=== PATIENT | female | born 1990 | race Caucasian/White ===

== ENCOUNTER 2016-04-06 15:59 | Inpatient (IN) | payer OTHER ==
[~2016-04-06] VITALS: Ht 160 cm; Wt 80.7 kg
[~2016-04-06 15:59] MED LIST: PREN1TAB69 PO
[2016-04-06] MEDS ORDERED: Lactated Ringer's 1,000 ML IV PRN (18:37)
[2016-04-06] MEDS ORDERED: Carboprost 250 mCg/mL Inj IM PRN ×2 (18:40→20:05)
[2016-04-06] MEDS ORDERED: Sodium Chloride LOK Flush 10 mL Syringe IVFLUSH PRN (18:40)
[2016-04-06] MEDS ORDERED: Oxytocin 10 Unit/mL Inj IM PRN ×2 (18:40→20:05)
[2016-04-06] MEDS ORDERED: Oxytocin 30 Units/500 mL LR 30 UNITS in IV Premix 1 EACH IV PRN ×2 (18:40→20:05)
[2016-04-06] MEDS ORDERED: Methylergonovine 0.2 mg/mL Inj IM PRN ×2 (18:40→20:05)
[2016-04-06] MEDS ORDERED: Hemorrhage Kit, Post Partum XX ONE ×2 (18:40→20:05)
[2016-04-06 18:47] LABS: Mean Corpuscular Hemoglobin 31.7 pg (27.0-35.0); Mean Corpuscular Volume 90.7 fL (81-100)
[2016-04-06] MEDS ORDERED: Lactated Ringer's 1,000 ML IV SCH ×2 (19:01→20:05)
[2016-04-06] MEDS ORDERED: Lactated Ringer's 500 ML IV ONE (19:01)
[2016-04-06] MEDS ORDERED: Ondansetron 2 mg/mL 2 mL Inj IVPUSH PRN (19:05)
[2016-04-06] MEDS ORDERED: fentaNYL-PF 50 mCg/mL 2 mL Inj IVPUSH PRN (19:05)
[2016-04-06] MEDS ORDERED: Atropine 1 mg/10 mL (Code) Syringe IVPUSH PRN (19:05)
[2016-04-06] MEDS ORDERED: fentaNYL 2 mCg/mL-Bupiv 0.125% 100 ML EPIDURAL SCH (19:05)
[2016-04-06] MEDS ORDERED: EPHEDrine Sulfate 50 mg/mL Inj IVPUSH PRN (19:05)
--- NOTE | 2016-04-06 19:43 | PCM.HPANE ---
Patient Data Date of Service: Apr 06, 2016 Surgeon Admitting Provider:Jason Hernandez MD Attending Provider:Jason Hernandez MD Primary Care Physician:Arabella Sarmiento MD Other Provider:Day Li Anesthesia Reason for Visit Term Labor Check TERM LABOR CHECK Ht/WT & BMI Body Mass Index Allergies Coded Allergies: No Known Allergies (Verified Allergy, Unknown, 05/07/15) Past Anesthesia History Anesthesia History: Denies:: Anesthesia Reactions, Fam Anesthesia Reaction Diabetes History Hx Diabetes?: No MRSA MRSA: No Medications Hypertension Medication: No Home Meds Incl Beta Kailyn: No Reported Medications Vit/Fe Fumarate/Fa-Expunged Drug, Do (-Expunged Drug, Do Not Renew!)1 Each Tablet1 Each PO QAM 07/25/10 History History of ENT Problems?: No Hx of Heart Problems?: No Cardiovascular History: Denies:: Congestive Heart Failure Hypertension Hx of Respiratory Problem?: No Respiratory History: Denies:: Tuberculosis Hx Neurologic Problems?: No Hx of GI Problems?: No Hx of Problems?: No HX of Peritoneal Dialysis: No Female Hx: Positive for:: Currently Hx Musculoskeletal Problems?: No Hx of Psycho/Social Problems?: No Hx Surgeries?: No Hx Any Other Health Problems?: No Hx Diabetes: No Hx Alcohol Use: NoHx Substance Use: No Smoking Status: Never Smoker Have You Smoked inLast 12 mo: No Stop/Bang MARC Risk Assessment: Low Risk, <3 Yes Risk Assessment Category Category 1A: Patient has history of documented sleep apnea, and HAS NOT received any narcotic, sedative or anesthesia administration during this stay. Category 1B: Patient has history of documented sleep apnea, and HAS received any narcotic , sedative or anesthesia administration during this stay Category 2: Patient has SUSPECTED Obstructive Sleep Apnea, and HAS received any narcotic , sedative or anesthesia administration during this stay. Category 3: Patient has SUSPECTED Obstructive Sleep Apnea and HAS NOT received narcotic, sedative or anesthesia administration during this stay. Category 4: Outpatient in Procedural Areas with known sleep apnea or who screen positive for High Risk via the STOP/BANG questionnaire. Exam Exam General Appearance: Alert, Oriented X3, Cooperative, Moderate Distress HEENT/AIRWAY: MP 2 Lungs: Clear to Auscultation, Normal Air Movement Heart: Exam Unremarkable, Regular Rate/Rhythm, No Murmurs/Rubs/Gallops Meds/Labs/Diagnostics Admission Meds Current Medications Lactated Ringer's (Lr) 1,000 ml @ 125 mls/hr Q8H IV Last administered on 04/06at 19:07; Start 04/06/16 at 19:01; Stop 04/07/16 at 19:02 Labs Test 04/06/16 18:45 04/06/16 18:55 White Blood Count 9.8th/mm3 (3.8-10.1) Red Blood Count 4.20mil/mm3 (3.90-5.20) Hemoglobin 13.3g/dL (12.0-15.6) Hematocrit 38.1% (35.0-46.0) Mean Corpuscular Volume 90.7fL (81-100) Mean Corpuscular Hemoglobin 31.7pg (27.0-35.0) Mean Corpuscular Hemoglobin Concent 34.9% (32.0-37.0) Red Cell Distribution Width 12.6% (12.3-15.4) Platelet Count 212bil/L (150-400) Hold Purple Top Tube Received (Received) Plan Impression Patient chart reviewed, patient interviewed and anesthestic plan with risks, benefits, and alternatives discussed, and informed consent obtained. NPO Status: presume full stomach ASA Physical Status: ASA2 Mod Systemic Disease Anesthetic Plan: Epidural Bene/Risks/Altern/Consents: Yes HP Complete Prior to Induction: Yes Romain Escobar MD Apr 06, 2016 19:43
[2016-04-06] MEDS ORDERED: Witch Hazel-Glycerin Pads TOPICAL PRN (20:05)
[2016-04-06] MEDS ORDERED: Benzocaine (Dermoplast) 20% 60 Gm Spray TOPICAL PRN (20:05)
[2016-04-06] MEDS ORDERED: LANOlin HPA 7 Gm Ointment TOPICAL PRN (20:05)
--- NOTE | 2016-04-06 20:57 | OP ---
[address] [address] OPERATIVE REPORT PATIENT: BELINDA WATSON : 1990 MR#: [id number] ADMIT: 04/06/2016 JOB ID: [id number] DELIVERY NOTE: DATE OF SURGERY: 04/06/2016 SURGEON: Jason Hernandez MD PREOPERATIVE DIAGNOSIS(ES): Term POSTOPERATIVE DIAGNOSIS(ES): Vaginal Delivery PROCEDURE: Normal spontaneous vaginal delivery over an intact perineum. ANESTHESIA: Epidural anesthesia. BABY: Vigorous baby girl, Apgars 8 and 9 at 1 and 5 minutes, respectively. Weight is not currently available. UTERUS: Spontaneous delivery of the placenta. No manual exploration of the uterus. LACERATIONS: None. DESCRIPTION: This patient is a 25-year-old, G3 now P3, who presented at 40 weeks gestation with a labor check about 4 hours ago and was initially found to be 2 cm dilated with irregular contractions. She was monitored over time and had rapid cervical change. Luckily she was able to get an epidural that she was requesting prior to delivering. She proceeded rapidly. There was some decelerations and she delivered the baby over approximately four contractions. There was a tight nuchal cord that was reduced. The baby was delivered without complication. Placenta came about 7 minutes later. The baby and mother are currently doing well in recovery. [facility] HOSPITALRuthie
--- NOTE | 2016-04-06 23:31 | PCM.ANEP1 ---
Post Anesthesia Phase 1 PACU Phase 1 Assessment Date of Service: Apr 06, 2016 Anesthetic Administered: Epidural Level of Alertness: Awake, talking MONTANEZ's with Equal Strength: Yes Pain: No Pain Scale Score: 0 Nausea or Vomiting: No Oxygen Delivery: Room Air Lungs: Clear to Auscultation, Normal Air Movement Dermatome Level: Full Sensation Summary Happy with epidural. Romain Escobar MD Apr 06, 2016 23:31
[2016-04-07] MEDS ORDERED: Sodium Chloride LOK Flush 10 mL Syringe IVFLUSH SCH (00:30)
[2016-04-07] MEDS: HYDROcodone-APAP 5-325 mg Tablet PO PRN ×3 (02:34→18:01)
[2016-04-07 07:15] LABS: Mean Corpuscular Hemoglobin 30.9 pg (27.0-35.0); Mean Corpuscular Volume 92.4 fL (81-100)
--- NOTE | 2016-04-07 19:00 | PCM.DC.OB ---
Obstetrical Discharge Summary Date of Service Apr 07, 2016 Date of hospital admission Apr 06, 2016 at 18:35 Date of Discharge: Apr 07, 2016 Providers Admitting Physician: Jason Hernandez MD Primary Care Physician: Arabella Sarmiento MD Attending Physician: Jason Hernandez MD Problems: (1) Qualifiers: Weeks of gestation: 40 weeks Qualified Code: Z3A.40 - 40 weeks gestation of Status: Resolved ICD Code: Z33.1 Invasive procedures Normal spontaneous vaginal delivery. Date of Procedure: Apr 06, 2016 Brief History and Physical: 25yo (now 5) presented at 40w gestation with labor check. uncomplicated except prodromal pain issues. Unremarkable course otherwise and unremarkable medical history. Hospital Course: Some increased vaginal bleeding but improved with pitocin. Now hospital educator than a period. Some pain associated with epidural location. No other complaints. Considering OCPs. well. Vit/Fe Fumarate/Fa-Expunged Drug, Do (-Expunged Drug, Do Not Renew!) 1 Each Tablet 1 EACH PO QAM (Reported) Discharge Diet: No restrictions Discharge Activity-General: No restrictions Jason Hernandez MD Apr 07, 2016 18:59
--- NOTE | 2016-04-07 19:01 | PCM.DIOB ---
Obstetrical Disch Instruction Dates of Hospitalization Date of Hospital Admission Apr 06, 2016 at 18:35 Providers Admitting Physician: Jason Hernandez MD Primary Care Physician: Arabella Sarmiento MD Attending Physician: Jason Hernandez MD Discharge Diagnosis Problems: (1) Qualifiers: Weeks of gestation: 40 weeks Qualified Code: Z3A.40 - 40 weeks gestation of Status: Resolved ICD Code: Z33.1 Diet Discharge Diet: No restrictions Activity Discharge Activity-General: No restrictions Dressing and Incisional Care Hygiene: May shower Follow Up Plan Follow-up appointment: Weeks (6) Call your provider for: Fever or Chills, Shortness of breath, Heavy vaginal bleeding, Heavy bleeding, Epigastric pain, Excessive constipation, Vaginal discomfort, Red painful breasts Jason Hernandez MD Apr 07, 2016 19:01
[2016-04-07] MEDS ORDERED: HYDR-4003 PO (19:02)
[2016-04-07 19:10] VITALS: BP 133/77; PULSE 62; RESP 16
== END 2016-04-07 19:42 | disposition home or self-care (01) | DRG 560 ==
LOC: FBCO 15:59 → FBC 18:35
PROVIDERS: ADMIT Family Medicine; ATTEND Family Medicine
PROC: 10E0XZZ Delivery of Products of Conception, External Approach (ICD-10-PCS; principal; 2016-04-06)
DX: O69.1XX0 Labor and delivery complicated by cord around neck, with compression, not applicable or unspecified (principal); Z3A.40 40 weeks gestation of pregnancy; Z37.0 Single live birth

== ENCOUNTER 2016-06-09 10:31 | Emergency (ER) | payer OTHER ==
[~2016-06-09] VITALS: Ht 160 cm; Wt 72.0 kg
[~2016-06-09 10:31] MED LIST changes: +HYDR-4003 PO
[2016-06-09 10:34] VITALS: BP 112/74; RESP 18; O2SAT 96
--- NOTE | 2016-06-09 10:44 | ED.REPORT ---
HPI-URI / Cough / Cold Date of Service Jun 09, 2016 ED Provider: Lavon Leung MD Patient is a healthy 25 year old female who presents to the ED complaining of R ear pain that awoke her at 0300 this morning. Her pain radiates to her neck. Associated symptoms include cough and sinus congestion. She denies fever, chest pain, or any other symptoms. Nursing Notes Stated Complaint: EAR AND THROAT PAIN Chief Complaint: ENT & Mouth Nursing Notes Reviewed: Yes Allergies: Coded Allergies: No Known Allergies (Verified Allergy, Unknown, 06/09/16) Scheduled ([ control pill]) DAILY General Time Seen by MD: 10:43 Chief Complaint Earache right Hx Obtained From: Patient Arrived By: Walk-in Past Medical History Past Medical History 06/09/16 Reports: Migraines Past Surgical History denies Smoking History Never Smoker Social History Alcohol Use: Denies alcohol use Drug Use: Denies drug use Occupation lives with boyfriend Ambulatory Status Independent Review of Systems Constitutional: Denies: Fever Ears / Nose / Throat: Reports: Earache right, Nasal congestion Respiratory: Reports: Non-productive cough Complete sys rev & neg: except as marked. Cardiovascular: Denies: Chest pain Musculoskeletal: Reports: Neck pain Physical Exam Initial Vital Signs Vital Signs (First) Date Time Temp Pulse Resp B/P Pulse Ox O2 Delivery O2 Flow Rate FiO2 06/09/16 10:34 36.2 55 18 112/74 96 Room Air Initial VS: Reviewed Head / Eyes: Atraumatic, Normocephalic Neck: Full range of motion Abdomen / GI: Soft, Non-tender Skin: Warm, Dry Neurologic: Alert, Oriented, Nonfocal Psychiatric: Mood/affect normal, Behavior normal, Normal thought content General/Constitutional: Awake, Alert, Well developed Right Ear / Mastoid: Positive: Tympanic membrane bulging, Tympanic membrane red L TM nL R TM effusion Respiratory / Chest: No respiratory distress Re-Eval/Medical Decision Re-Evaluation/Progress : Time of Eval: 10:57 Re-Evaluation/Progress Note: Discussed plan for discharge. Patient understands and agrees with plan. All questions addressed at this time Counseled Regarding: Diagnosis, Need for follow-up, When/why to return to ED Discharge & Departure Impression: Primary Impression: Otitis media Otitis media type: suppurative Laterality: right Chronicity: acute Recurrence: not specified Spontaneous tympanic membrane rupture: without spontaneous rupture Qualified Code: H66.001 - Acute suppurative otitis media without spontaneous rupture of ear drum, right ear Disposition: Home Discharge Condition All VS Reviewed: Yes Condition: Stable Patient Instructions: Otitis Media (ED) Additional Instructions: Thank you for entrusting us with your care today. Take your antibiotics as prescribed. (Amoxicillin) Ibuprofen 800mg every 8 hours as needed for pain. Follow-up in 2-3 days if not improved. Referrals: Arabella Sarmiento MD (PCP) Scribe Attestation Portions of this note were transcribed by Timo Calix. I, Dr. Leung personally performed the history, physical exam and medical decision-making; I reviewed and confirmed the accuracy of the information in the transcribed note. Signed by: Timo Calix 06/09/2016, 1103 copies to: Arabella Sarmiento MD, Kirk H MD Jun 09, 2016 10:44 TIMO CALIX Jun 09, 2016 10:58
[2016-06-09] MEDS ORDERED: AMOX875T2 PO (10:56)
[2016-06-09] MEDS ORDERED: birth control pill (11:00)
[2016-06-09 11:10] VITALS: BP 112/74; PULSE 55; RESP 18; O2SAT 96
== END 2016-06-09 11:10 | disposition home or self-care (01) ==
LOC: SED 10:31
DX: H66.001 Acute suppurative otitis media without spontaneous rupture of ear drum, right ear (principal)

== ENCOUNTER 2016-09-30 08:08 | Emergency (ER) | payer OTHER ==
[~2016-09-30] VITALS: Ht 160 cm; Wt 70.4 kg
[~2016-09-30 08:08] MED LIST changes: -HYDR-4003 PO; -PREN1TAB69 PO; +birth control pill
[2016-09-30 08:24] VITALS: BP 115/72; PULSE 85; RESP 17; O2SAT 99
--- NOTE | 2016-09-30 08:37 | ED.REPORT ---
HPI-URI / Cough / Cold Date of Service Sep 30, 2016 ED Provider: Virginia Lieberman Patient is a 25 year old female who presents to the ED complaining of vomiting onset 2 days ago. Associated symptoms include productive cough, sore throat, headache, and sweats. She denies abdominal pain, fever, diarrhea, hematemesis, or any other symptoms. Nursing Notes Stated Complaint: NOT FEELING WELL Chief Complaint: General Complaint Nursing Notes Reviewed: Yes Allergies: Coded Allergies: No Known Allergies (Verified Allergy, Unknown, 06/09/16) Scheduled ([ control pill]) DAILY General Time Seen by MD: 08:36 Chief Complaint Other (Vomiting ) Hx Obtained From: Patient Arrived By: Walk-in Onset Occurred: 2 days ago Symptom Duration: Since onset Context: Immunization Status General: Unknown Past Medical History Past Medical History 06/09/16 Reports: Migraines Past Surgical History denies Smoking History Never Smoker Social History Alcohol Use: Denies alcohol use Drug Use: Denies drug use Occupation lives with boyfriend Ambulatory Status Independent Review of Systems Review of Systems Note: +sweats Constitutional: Denies: Fever Respiratory: Reports: Prod cough, clear GI: Reports: Vomiting, Denies: Abdominal pain, Diarrhea, Hematemesis Neurologic: Reports: Headache Complete sys rev & neg: except as marked. Physical Exam Initial Vital Signs Vital Signs (First) Date Time Temp Pulse Resp B/P Pulse Ox O2 Delivery O2 Flow Rate FiO2 09/30/16 08:24 36.9 85 17 115/72 99 Room Air Initial VS: Reviewed Head / Eyes: Atraumatic, Normocephalic Neck: Full range of motion Cardiovascular: Regular rate & rhythm, Heart sounds normal, Intact distal pulses Abdomen / GI: Soft, Non-tender Skin: Warm, Dry Neurologic: Alert, Oriented, Nonfocal Psychiatric: Mood/affect normal, Behavior normal, Normal thought content General/Constitutional: Awake, Alert, Well developed ENT: Airway patent, Tympanic membs NL Pharynx / Tonsils / Uvula: Positive: Pharyngeal erythema (Mild ) No exudate Respiratory / Chest: Breath sounds NL, Breath sounds = bilat, No respiratory distress Re-Eval/Medical Decision Re-Evaluation/Progress : Time of Eval: 08:50 Re-Evaluation/Progress Note: Discussed plan for discharge. Patient understands and agrees with plan. All questions addressed at this time. Counseled Regarding: Diagnosis, Need for follow-up, When/why to return to ED Discharge & Departure Impression: Primary Impression: Viral upper respiratory illness Disposition: Home Discharge Condition All VS Reviewed: Yes Condition: Stable Additional Instructions: As with Libia, I am finding no evidence of bacterial infection, wheezing, or significant respiratory issues. There is no ear infection, and no suggestion of strep throat or sinus infection either. Thank you for bringing her in to be evaluated today. I think that you simply have a cold. You should both be feeling better within the next 5-7 days. Please follow-up with Dr. Sarmiento if you seem to be getting worse Sorry you missed your first day of work. I hope this job works out for you! Referrals: Arabella Sarmiento MD (PCP) Scribe Attestation Portions of this note were transcribed by Timo Calix. I, Dr. Lieberman personally performed the history, physical exam and medical decision-making; I reviewed and confirmed the accuracy of the information in the transcribed note. Signed by: Timo Calix 09/30/16, 0917 copies to: Arabella Sarmiento MD, Shawna L MD Sep 30, 2016 08:37 TIMO CALIX Sep 30, 2016 08:59
[2016-09-30 09:04] VITALS: BP 115/72; PULSE 85; RESP 17; O2SAT 99
== END 2016-09-30 08:57 | disposition home or self-care (01) ==
LOC: SED 08:08
DX: J06.9 Acute upper respiratory infection, unspecified (principal); R51 Headache; G43.909 Migraine, unspecified, not intractable, without status migrainosus

== ENCOUNTER 2016-12-11 21:26 | Emergency (ER) | payer OTHER ==
[~2016-12-11] VITALS: Ht 160 cm; Wt 68.2 kg
[2016-12-11 21:41] VITALS: BP 111/76; PULSE 58; RESP 16; O2SAT 100
--- NOTE | 2016-12-11 21:50 | ED.REPORT ---
HPI-Extremity Problem Lower Date of Service Dec 11, 2016 ED Provider: Dr. Hill Pt is a healthy 26 y/o female presenting to the ED c/o right foot swelling secondary to previous injury onset today. The patient stepped on a Wonder Woman crown last night suffering a puncture wound and since then the foot has become swollen and painful and is draining yellow discharge and becoming erythematous. Pt denies fever, any other injuries. Nursing Notes Stated Complaint: RIGHT FOOT SWELLING DUE TO LACERATION Chief Complaint: Extremity Trauma Nursing Notes Reviewed: Yes Allergies: Coded Allergies: No Known Allergies (Verified Allergy, Unknown, 12/11/16) Scheduled ([ control pill]) DAILY Cephalexin (Keflex) 500 Mg Capsule 500 MG PO QID General Time Seen by MD: 21:50 Chief Complaint Other (Right foot injury) Hx Obtained From: Patient Arrived By: Walk-in Onset Occurred: 5 - 8 hours ago Symptom Duration: Since onset Caused by: Stick Location: : Foot right Quality: Painful Severity: Current: Moderate Severity: Maximum: Moderate Recent Healthcare: No recent hospitalization Similar Sx Previous: No Past Medical History Past Medical History Denies Reports: Migraines Past Surgical History denies Smoking History Never Smoker Social History Alcohol Use: Denies alcohol use Drug Use: Denies drug use Occupation lives with boyfriend Ambulatory Status Independent Review of Systems Constitutional: Denies: Fever Musculoskeletal: Reports: Extremity pain Skin: Reports Rash, Reports Swelling Complete sys rev & neg: except as marked. Physical Exam Initial Vital Signs Vital Signs (First) Date Time Temp Pulse Resp B/P Pulse Ox O2 Delivery O2 Flow Rate FiO2 12/11/16 21:41 36.8 58 16 111/76 100 Room Air Initial VS: Reviewed, Vital signs normal Head / Eyes: Atraumatic, Normocephalic ENT: Mucous membranes moist, Conjunctiva normal Neck: Full range of motion Respiratory: Breath sounds normal, Clear to auscultation, No respiratory distress Cardiovascular: Regular rate & rhythm, Heart sounds normal, Intact distal pulses Abdomen / GI: No distention Upper Extremities: Vascular intact, Neuro intact, No swelling Skin: Warm, Dry, No cyanosis Neurologic: Alert, Oriented, Nonfocal Psychiatric: Mood/affect normal, Behavior normal, Normal thought content Lower Extremity / Pelvis / MS: No deformity, Neurologic intact, Vascular intact Ankle / Foot: No deformity, Neurologic intact, Vascular intact 0.5 cm circular flap with pus underlying and erythema surrounding with lymphangitic streaking up to the dorsum of the foot General/Constitutional: Awake, Alert, No acute distress, Well appearing, Cooperative, Not toxic appearing Procedures Incision & Drainage Abscess I & D Abscess: Debrided the flap. Made a linear slit with the scalpel and then a triangular slit. In a T fashion I made a 3 mm cut with a 15 blade and extruded everything from there. I then held pressure and dressed the wound. Time: 10:10 Procedure Performed by: ED physician Consent / Setup / Site Prep: Consent from patient, Time-out performed, Hand hygiene observed, Stand sterile technique Post-Procedure / Complications: Dressing applied, No complications, Condition improved, Tolerated procedure well, Patient stable Re-Eval/Medical Decision Med Decision/Clinical Course 26-year-old sustained a small puncture wound on her right foot. There was a flap initially that went back in place and she now has a small pus collection and lymphangitic streaking. This was debrided off after routine prep and lidocaine injection. A small T incision was made to allow continued drainage. Was dressed in bacitracin and a pressure dressing. Home for hot soaks, Keflex, and follow up with PCP. Prompt return if worse. Re-Evaluation/Progress : Time of Eval: 22:26 Re-Evaluation/Progress Note: Pt rechecked. Informed pt of plan for discharge. Pt understands and agrees with plan for discharge. F/U instructions and RTER warnings given. All questions addressed. Counseled Regarding: Diagnosis, Need for follow-up, When/why to return to ED Discharge & Departure Impression: Primary Impression: Puncture wound Additional Impressions: Cellulitis Site of cellulitis: extremity Site of cellulitis of extremity: lower extremity Laterality: right Qualified Code: L03.115 - Cellulitis of right lower limb Lymphangitis Disposition: Home Discharge Condition All VS Reviewed: Yes Condition: Stable Patient Instructions: Cellulitis (ED), Puncture Wound (ED) Additional Instructions: When you get home, remove the stretchy bandage, but leave the underlying Band- Aid intact. Tomorrow, begin hot soaks three times daily and redress with bacitracin and a Band-Aid. Keflex four times daily. Follow-up with your doctor in the office. Return if any immediate issues. Referrals: Arabella Sarmiento MD (PCP) Scribe Attestation Portions of this note were transcribed by Colt Clark. I, Dr. Hill, personally performed the history, physical exam and medical decision-making; I reviewed and confirmed the accuracy of the information in the transcribed note. copies to: Arabella Sarmiento MD, Christopher W MD Dec 11, 2016 21:50 COLT CLARK Dec 11, 2016 21:57
[2016-12-11] MEDS ORDERED: CEPH-512 PO (22:23)
[2016-12-11 22:29] VITALS: BP 110/72; PULSE 60; RESP 17; O2SAT 99
== END 2016-12-11 22:33 | disposition home or self-care (01) ==
LOC: SED 21:26
DX: S91.331A Puncture wound without foreign body, right foot, initial encounter (principal); W20.8XXA Other cause of strike by thrown, projected or falling object, initial encounter; Y93.89 Activity, other specified; Y92.89 Other specified places as the place of occurrence of the external cause; Y99.8 Other external cause status; L03.115 Cellulitis of right lower limb; G43.909 Migraine, unspecified, not intractable, without status migrainosus